=== PATIENT | male | born 1955 | race Caucasian/White ===

== ENCOUNTER 2024-07-17 09:03 | Emergency (ER) | payer OTHER, MEDICARE ==
[~2024-07-17] VITALS: Ht 188 cm; Wt 116.1 kg
[~2024-07-17 09:03] MED LIST: AMITRIPTYLINE H75 MG PO; ASPIRIN EC325 MG PO; CYCLOBENZAPRINE5 MG PO; FLUOXETINE HCL20 MG PO; LOSARTAN POTASS25 MG PO; PERCOCET 7.5-31 EACH PO; TRAMADOL HCL50 MG PO; TRAZODONE HCL50 MG PO
[2024-07-17 11:35] VITALS: BP 157/89
== END 2024-07-17 11:35 | disposition home or self-care (01) ==
LOC: ED 09:03
DX: S01.81XA Laceration without foreign body of other part of head, initial encounter (principal); I10 Essential (primary) hypertension; E78.00 Pure hypercholesterolemia, unspecified; Z88.5 Allergy status to narcotic agent; Z91.040 Latex allergy status; Z79.82 Long term (current) use of aspirin; Z79.899 Other long term (current) drug therapy; W01.198A Fall on same level from slipping, tripping and stumbling with subsequent striking against other object, initial encounter
CPT/HCPCS: 12011; 70486; 99283-25